=== PATIENT | female | born 1975 | race Caucasian/White ===

== ENCOUNTER 2024-12-01 04:16 | Day surgery (SDC) | payer OTHER ==
[2024-11-29 15:05] VITALS: BMI 34.7
[2024-12-01] MEDS ORDERED: BUPIVACAINE HCL/PF 0.25% (2.5MG/ML) 10 ML VIAL ONE (10:14)
[2024-12-01] MEDS ORDERED: HEPARIN NA (PORCINE) 5,000 UNITS/ML 1ML VIAL ONE (10:14)
[2024-12-01] MEDS ORDERED: oxyCODONE HCL 5 MG TABLET PO PRN (10:16)
[2024-12-01] MEDS ORDERED: ONDANSETRON 4 MG/2 ML VIAL IVPUSH PRN ×2 (10:16→20:54)
[2024-12-01] MEDS ORDERED: LIDOCAINE HCL/PF 2% SDV 5ML VIAL ONE (10:18)
[2024-12-01] MEDS ORDERED: ROCURONIUM BROMIDE 50 MG/5 ML SYRINGE ONE ×2 (10:18→15:33)
[2024-12-01] MEDS ORDERED: MIDAZOLAM HCL 2 MG/2 ML SINGLE DOSE VIAL ONE (10:18)
[2024-12-01] MEDS ORDERED: PROPOFOL 20 ML ONE (10:18)
[2024-12-01] MEDS: ceFAZolin SODIUM 1 GM VIAL IVPB ONE ×3 (11:00)
[2024-12-01] MEDS: BUPIVACAINE HCL/PF 0.25% (2.5MG/ML) 10 ML VIAL IJ ONE ×2 (11:04)
[2024-12-01] MEDS ORDERED: ceFAZolin SODIUM 1 GM VIAL ONE (14:31)
[2024-12-01] MEDS ORDERED: HYDROmorphone HCl 2 MG/ML VIAL ONE (17:20)
[2024-12-01] MEDS ORDERED: PROPOFOL 40 ML ONE ×2 (19:06→19:48)
[2024-12-01] MEDS ORDERED: SUGAMMADEX SODIUM 200 MG/2 ML VIAL ONE (20:27)
[2024-12-01] MEDS ORDERED: KETOROLAC TROMETHAMINE 30 MG/1 ML VIAL ONE (20:27)
[2024-12-01] MEDS ORDERED: HYDROmorphone HCL CARPU-JECT 2 MG/1 ML DISP.SYRIN IVPB PRN (20:53)
[2024-12-01] MEDS: LACTATED RINGERS SOLUTION 1,000 ML IV SCH (23:00)
[2024-12-02] MEDS: LOSARTAN 50MG/HCTZ 12.5MG 1 TAB PO SCH (00:53)
[2024-12-02] MEDS: oxyCODONE HCL 5 MG TABLET PO PRN (00:57)
[2024-12-02] MEDS: LORATADINE 10 MG TABLET PO SCH (00:59)
[2024-12-02] MEDS: metoPROLOL SUCCINATE 25 MG TAB.SR.24H (FP) PO SCH (00:59)
[2024-12-02 01:34] VITALS: RESP 18
[2024-12-02] MEDS: ACETAMINOPHEN 500 MG TABLET (FP) PO SCH (02:14)
[2024-12-02] MEDS: KETOROLAC TROMETHAMINE 15 MG/ML VIAL IVPUSH PRN (06:08)
[2024-12-02 09:15] LABS: HEMATOCRIT 30.4 % (32.4-45.2); MCH 24.9 pg (25.7-33.7); MEAN CELL VOLUME 75.4 fl (80-96); MEAN PLT VOLUME 7.7 fl (7.5-11.1); PLATELET COUNT 396 10^3/uL (134-434); RBC 4.03 M/mm3 (3.60-5.2); RDW 15.2 % (11.6-15.6); WHITE BLOOD COUNT 7.8 K/mm3 (4.0-10.0)
[2024-12-02 09:51] LABS: POTASSIUM 4.5 mmol/L (3.5-5.1)
[2024-12-02 09:55] LABS: BLOOD UREA NITROGEN 17.7 mg/dL (7-18)
[2024-12-02 09:56] LABS: MAGNESIUM 1.7 mg/dL (1.8-2.4)
[2024-12-02 09:59] LABS: CALCIUM 7.8 mg/dL (8.5-10.1); CREATININE 0.9 mg/dL (0.55-1.3)
[2024-12-02 10:01] LABS: PHOSPHOROUS 2.7 mg/dL (2.5-4.9)
[2024-12-02 15:19] VITALS: TEMP 98.4
[2024-12-02 15:35] VITALS: BP 114/74; PULSE 93
[2024-12-02] MEDS ORDERED: ACETAMINOPHEN 500 MG TABLET (FP) PO SCH (16:00)
== END 2024-12-02 17:23 | disposition home or self-care (01) ==
LOC: JASUSAT 04:16 → JASU-SURG 04:16 → SUATTDRO 04:16 → J8W 23:21 → JASUSAT 12-02 17:23
PROC: 8E0W4CZ Robotic Assisted Procedure of Trunk Region, Percutaneous Endoscopic Approach (ICD-10-PCS; 2024-12-01)
PROC: 0WUF4JZ Supplement Abdominal Wall with Synthetic Substitute, Percutaneous Endoscopic Approach (ICD-10-PCS; principal; 2024-12-01 10:30)
DX: K43.2 Incisional hernia without obstruction or gangrene (principal)
CPT/HCPCS: 15734; 49617; S2900; 36415; 80048; 83735; 84100; 85027; 86850; 86900; 86901; 93005; 93010; 94760; C1781; J1644